=== PATIENT | male | born 1950 | race Caucasian/White ===

== ENCOUNTER 2018-07-03 08:51 | Emergency (ER) | payer MEDICARE ==
[2018-07-03 09:27] VITALS: BP 157/88
[2018-07-03] MEDS ORDERED: Tetan/Diph/Pertus SYR(Tdap)* 0.5 ML SYR(BOOSTRIX) use SYR IM ONE (09:47)
[2018-07-03] MEDS ORDERED: Lidocaine 1% MPF* 2 ML VIAL ONE (09:58)
[2018-07-03] MEDS ORDERED: Lidocaine 1%* 5 ML VIAL INJ ONE (10:02)
== END 2018-07-03 11:00 | disposition home or self-care (01) ==
LOC: UCCORT 08:51
DX: S61.211A Laceration without foreign body of left index finger without damage to nail, initial encounter (principal); X58.XXXA Exposure to other specified factors, initial encounter; Y92.9 Unspecified place or not applicable
CPT/HCPCS: 12001; 90471; 90715; 99201; G0463

== ENCOUNTER 2018-07-14 07:01 | Emergency (ER) | payer MEDICARE ==
[2018-07-14 07:22] VITALS: BP 161/89
[2018-07-14] MEDS ORDERED: Benzoin Compound STICK TOPICAL ONE (07:31)
--- NOTE | 2018-07-14 07:33 | UC ---
HPI Wound/Suture Re-check - HPI Summary HPI Summary: The patient is a 68-year-old male who presents here for suture removal from his left index finger. He states that everything was doing fine until this weekend. He went on a long drive and developed some redness and swelling that seemed to start around one of the stitches. Progressively worsened over the past 24 hours there has been some drainage of pus from one of the stitches. He denies any fever. - History Of Current Complaint Chief Complaint: [place] Stated Complaint: SUTURE REMOVAL - DONE HERE Time Seen by Provider: 07/14/18 07:25 Hx Obtained From: Patient Onset/Duration: Gradual Onset Severity: Mild Pain Intensity: 1 Pain Scale Used: 0-10 Numeric Hands: 1 - stitchabscess with surrounding erythema 2 - decreased sensation radial aspect - Allergies/Home Medications Allergies/Adverse Reactions: Allergies Allergy/AdvReac Type Severity Reaction Status Date / Time amoxicillin Allergy Unknown Hives Verified 07/14/18 07:15 Home Medications: Home Medications Valsartan TAB* [Diovan TAB*] 80 mg PO DAILY 07/14/18 [History Confirmed 07/14/18 ] PMH/Surg Hx/FS Hx/Imm Hx Previously Healthy: Yes Cardiovascular History: Hypertension - Surgical History Surgical History: Yes Surgery Procedure, Year, and Place: left total knee. right knee meniscus. tonsillectomy - Family History Known Family History: Positive: Hypertension - Social History Alcohol Use: None Substance Use Type: None Smoking Status (MU): Never Smoked Tobacco - Immunization History Most Recent Tetanus Shot: 2017 Review of Systems Constitutional: Negative Skin: Negative Eyes: Negative ENT: Negative Respiratory: Negative Cardiovascular: Negative Gastrointestinal: Negative Genitourinary: Negative Motor: Negative Neurovascular: Negative Musculoskeletal: Negative Neurological: Negative Psychological: Negative Is Patient Immunocompromised?: No All Other Systems Reviewed And Are Negative: Yes Physical Exam Triage Information Reviewed: Yes Appearance: Well-Appearing, No Pain Distress, Well-Nourished Vital Signs: Initial Vital Signs Temp 98.3 F 07/14/18 07:16 Pulse 64 07/14/18 07:16 Resp 18 07/14/18 07:16 BP 161/89 07/14/18 07:16 Pulse Ox 98 07/14/18 07:16 Vital Signs Reviewed: Yes Eyes: Positive: Conjunctiva Clear ENT: Positive: Hearing grossly normal. Negative: Nasal congestion, Nasal drainage, Muffled voice, Hoarse voice Neck: Positive: Supple, Nontender, No Lymphadenopathy Respiratory: Positive: Lungs clear, Normal breath sounds, No respiratory distress Cardiovascular: Positive: RRR, No Murmur Musculoskeletal: Positive: Edema @ - lif Neurological: Positive: Alert Skin Exam: Other - SEE IMAGE/LIF- stitch abscess with surround cellulits. decreased sensation radial aspect of finger disrtal to lac Course/Dx - Course Course Of Treatment: sutures removed. culture obtained. steristips applied. dressing applied - Differential Dx - Laceration/Wound Provider Diagnoses: suture removal left index finger. stitch abscess. cellulitis. digital nerve laceration Discharge - Sign-Out/Discharge Documenting (check all that apply): Patient Departure All imaging exams completed and their final reports reviewed: No Studies - Discharge Plan Condition: Stable Disposition: HOME Prescriptions: Cephalexin CAP* [Keflex CAP*] 500 mg PO QID #28 cap Patient Education Materials: Cellulitis (ED) Referrals: No Primary Care Phys,NOPCP [Primary Care Provider] - Bethanie Olvera MD [Medical Doctor] - 4 Days Additional Instructions: sutures removed steristrips applies you had a stitch abscess that lead to cellulitis a culture is pending I also suspect you lacerated a digital nerve I suggest you follow with Dr. Olvera this week RECHECK HERE IN 48 HOURS IF SWELLING NOT IMPROVED RECHECK SOONER FOR NEW OR WORSENING SYMPTOMS - Billing Disposition and Condition Condition: STABLE Disposition: Home
[2018-07-14] MEDS ORDERED: Cephalexin CAP* 500 MG PO ONE (07:48)
== END 2018-07-14 08:08 | disposition home or self-care (01) ==
LOC: UCCORT 07:01
DX: S64.491D Injury of digital nerve of left index finger, subsequent encounter (principal); S61.211D Laceration without foreign body of left index finger without damage to nail, subsequent encounter; L03.012 Cellulitis of left finger; X58.XXXD Exposure to other specified factors, subsequent encounter; T81.41XD Infection following a procedure, superficial incisional surgical site, subsequent encounter; L02.512 Cutaneous abscess of left hand; B95.61 Methicillin susceptible Staphylococcus aureus infection as the cause of diseases classified elsewhere
CPT/HCPCS: 87070; 87205; 87640; 87641; 99212; A9270-GY; G0463